=== PATIENT | male | born 1935 | race Caucasian/White ===

== ENCOUNTER 2021-05-07 14:29 | Emergency (ER) | payer MEDICARE ==
[2021-05-07 15:22] LABS: ALT (SGPT) 42 U/L (8-55); AST (SGOT) 130 U/L (5-34); Albumin 3.6 g/dL (3.4-4.8); Alkaline Phosphatase 53 U/L (40-110); Anion Gap 14 mmol/L (10-20); BUN (Urea Nitrogen) 13 mg/dL (8.4-25.7); Bilirubin, Total 1.1 mg/dL (0.2-1.2); Calc. Creatinine Clearance 0 mL/min (70-130); Calcium 7.7 mg/dL (7.8-10.44); Carbon Dioxide 19 mmol/L (23-31); Chloride 83 mmol/L (98-107); Globulin 2.7 g/dL (2.4-3.5); Glucose 62 mg/dL (83-110); Lipase 15 U/L (8-78); Potassium 4.4 mmol/L (3.5-5.1); Protein, Total 6.3 g/dL (5.8-8.1)
[2021-05-07 15:31] LABS: Sodium 112 mmol/L (136-145)
[2021-05-07 15:33] LABS: CK (CPK) 5283 U/L (30-200)
[2021-05-07 15:55] LABS: #Monocytes 0.4 10x3/uL (0.0-1.1); #Neutrophils 6.1 10x3/uL (1.5-8.4); %Basophils 0.1 % (0.0-2.0); %Eosinophils 0.4 % (0.0-6.0); %Monocytes 5.4 % (0.0-10.0); %Neutrophils 85.7 % (40.0-75.0); Hemoglobin 15.6 g/dL (13.5-17.5); Mean Corpuscular HGB CONC 37.9 g/dL (32.0-36.0); Mean Corpuscular Volume 81.7 fl (81.2-95.1); Mean Platelet Volume 10.9 fl (7.4-10.4); Platelet Count 90 10x3/uL (150-450); RBC Distribution Width 11.2 % (11.5-14.5); Red Blood Cell (RBC) Count 5.04 10x6/uL (4.32-5.72); White Blood Cell (WBC) Count 7.2 10x3/uL (3.5-10.5)
[2021-05-07 16:01] LABS: CKMB 50.4 ng/mL (0-6.6)
[2021-05-07 16:04] LABS: SARS-CoV-2 NAA Rapid Test DETECTED (NotDetected)
[2021-05-07] MEDS ORDERED: Norepinephrine 8 MG/0.9% NS 250 ML ONE ×2 (17:06→17:11)
[2021-05-07 17:15] LABS: Platelet Morphology Comment Appears Decreased; RBC Morphology Normal
[2021-05-07] MEDS ORDERED: Cefepime 2 GM VIAL ONE (17:28)
[2021-05-07] MEDS ORDERED: Vancomycin HCl 500 MG VIAL ONE (17:28)
== END 2021-05-07 19:36 | disposition short-term general hospital (02) ==
LOC: CSHERS 14:29
DX: A41.89 Other specified sepsis (principal); U07.1 COVID-19; R65.21 Severe sepsis with septic shock; E87.1 Hypo-osmolality and hyponatremia; R77.8 Other specified abnormalities of plasma proteins; K21.9 Gastro-esophageal reflux disease without esophagitis
CPT/HCPCS: 70450; 71045; 74177; 80053; 82550; 82553; 83605; 83690; 84484; 85025; 87040 ×2; 93005; U0002; 36556; 96365; 96366; 96368; J0692; J3370